=== PATIENT | female | born 1980 | race Caucasian/White ===

== ENCOUNTER 2018-03-20 20:20 | Emergency (ER) | payer OTHER ==
[2018-03-20 20:38] VITALS: BP 115/65
[2018-03-20] MEDS ORDERED: Penicillin G Benzathine 1.2MU* 1,200,000 UNITS/2 ML SYR IM ONE (20:46)
--- NOTE | 2018-03-20 20:48 | UC ---
Ear Complaint HPI - HPI Summary HPI Summary: Patient has had cold and congestion for the past 8 days. has developed body aches, tonight started having sharp pain in her right ear. - History of Current Complaint Chief Complaint: UCEar Stated Complaint: EAR COMPLAINT Hx Obtained From: Patient Hx Last Menstrual Period: 02/27/18 Onset/Duration: Sudden Onset, Lasting Hours Severity Initially: Moderate Severity Currently: Moderate Pain Intensity: 6 Associated Signs/Symptoms: Positive: URI Symptoms - Allergies/Home Medications Allergies/Adverse Reactions: Allergies Allergy/AdvReac Type Severity Reaction Status Date / Time MS Sulfa Antibiotics Allergy Intermediate Hives/Diff. Verified 12/17/12 12:58 [Sulfa Antibiotics] Breathing/I tching MS Levofloxacin Allergy Anxiety Verified 12/17/12 12:58 [From Levaquin] Home Medications: Home Medications Dapsone [Aczone] 90 gm TP DAILY 03/20/18 [History Confirmed 03/20/18] PMH/Surg Hx/FS Hx/Imm Hx Previously Healthy: Yes - Surgical History Surgical History: Yes Surgery Procedure, Year, and Place: URETHRAL STRETCHING - Family History Known Family History: Negative: Cardiac Disease, Hypertension - Social History Alcohol Use: Occasionally Substance Use Type: None Smoking Status (MU): Never Smoked Tobacco Review of Systems Constitutional: Negative Skin: Negative Eyes: Negative ENT: Sore Throat, Ear Ache, Nasal Discharge, Sinus Congestion Respiratory: Cough Cardiovascular: Negative Gastrointestinal: Negative Genitourinary: Negative Motor: Negative Neurovascular: Negative Musculoskeletal: Negative Neurological: Headache Psychological: Negative Is Patient Immunocompromised?: No All Other Systems Reviewed And Are Negative: Yes Physical Exam Triage Information Reviewed: Yes Appearance: Well-Appearing, Well-Nourished, Pain Distress Vital Signs: Initial Vital Signs Temp 99.2 F 03/20/18 20:33 Pulse 74 03/20/18 20:33 Resp 16 03/20/18 20:33 BP 115/65 03/20/18 20:33 Pulse Ox 100 03/20/18 20:33 Eye Exam: Normal ENT: Positive: Pharyngeal erythema, TM bulging - bilateral, TM dull, TM red - right Dental Exam: Normal Neck exam: Normal Neck: Positive: Supple, Nontender, No Lymphadenopathy Respiratory Exam: Normal Respiratory: Positive: Chest non-tender, Lungs clear, Normal breath sounds Cardiovascular Exam: Normal Cardiovascular: Positive: RRR, No Murmur, Pulses Normal Abdominal Exam: Normal Abdomen Description: Positive: Nontender, No Organomegaly, Soft Bowel Sounds: Positive: Present Musculoskeletal Exam: Normal Neurological Exam: Normal Psychological Exam: Normal Skin Exam: Normal Ear Complaint Course/Dx - Course Course Of Treatment: hx obtained, exam performed ,meds reviewed, treated for otitis media - Differential Dx/Diagnosis Differential Diagnosis/HQI/PQRI: Otitis Externa, Otitis Media, Perforated TM, URI Provider Diagnoses: right otitis media Discharge - Sign-Out/Discharge Documenting (check all that apply): Patient Departure All imaging exams completed and their final reports reviewed: No Studies - Discharge Plan Condition: Stable Disposition: HOME Referrals: David Espitia MD [Primary Care Provider] - Additional Instructions: 1. YOu were given a shot of penicillin for your ear infection. 2. Increase fluid intake and get plent of rest 3. Warm compresses to the affected ear for pain 4. Ibuprofen or tylenol for pain and fever. - Billing Disposition and Condition Condition: STABLE Disposition: Home
== END 2018-03-20 21:13 | disposition home or self-care (01) ==
LOC: UCCORT 20:20
DX: H66.91 Otitis media, unspecified, right ear (principal)
CPT/HCPCS: 96372; 99211; G0463; J0558

== ENCOUNTER 2018-04-02 10:02 | Emergency (ER) | payer OTHER ==
[2018-04-02 10:19] VITALS: BP 105/60
--- NOTE | 2018-04-02 12:12 | UC ---
Ear Complaint HPI - HPI Summary HPI Summary: Pt c/o lef ear pain, discharge, and swelling X1` day. Pt also c/o upper back and neck stiffness and pain. - History of Current Complaint Chief Complaint: UCEar Stated Complaint: LEFT EAR PAIN Time Seen by Provider: 04/02/18 10:30 Hx Last Menstrual Period: 02/27/18 ?: Yes Onset/Duration: Sudden Onset, Still Present Severity Initially: Mild Severity Currently: Moderate Pain Intensity: 6 Pain Scale Used: 0-10 Numeric Associated Signs/Symptoms: Positive: Discharge - Allergies/Home Medications Allergies/Adverse Reactions: Allergies Allergy/AdvReac Type Severity Reaction Status Date / Time levofloxacin Allergy Anxiety Verified 04/02/18 10:56 Sulfa (Sulfonamide Allergy Hives/Diff. Verified 04/02/18 10:56 Antibiotics) Breathing/I tching PMH/Surg Hx/FS Hx/Imm Hx Previously Healthy: Yes - Surgical History Surgical History: Yes Surgery Procedure, Year, and Place: URETHRAL STRETCHING - Family History Known Family History: Negative: Cardiac Disease, Hypertension - Social History Occupation: Employed Full-time Lives: With Family Alcohol Use: Occasionally Substance Use Type: None Smoking Status (MU): Never Smoked Tobacco Have You Smoked in the Last Year: No Review of Systems Constitutional: Negative Skin: Negative Eyes: Negative ENT: Dental Pain, Ear Ache Respiratory: Negative Cardiovascular: Negative Gastrointestinal: Negative Genitourinary: Negative Motor: Negative Neurovascular: Negative Musculoskeletal: Myalgia Neurological: Negative Psychological: Negative Is Patient Immunocompromised?: No All Other Systems Reviewed And Are Negative: Yes Physical Exam Triage Information Reviewed: Yes Appearance: Well-Appearing Vital Signs: Initial Vital Signs Temp 98.1 F 04/02/18 10:13 Pulse 73 04/02/18 10:13 Resp 14 04/02/18 10:13 BP 105/60 04/02/18 10:13 Pulse Ox 100 04/02/18 10:13 Vital Signs Reviewed: Yes Eye Exam: Normal ENT Exam: Other ENT: Positive: TM bulging - left TM with delvalle fluid behind left TM Dental Exam: Normal Neck exam: Normal Respiratory Exam: Normal Cardiovascular Exam: Normal Musculoskeletal Exam: Normal Neurological Exam: Normal Psychological Exam: Normal Skin Exam: Normal Ear Complaint Course/Dx - Differential Dx/Diagnosis Differential Diagnosis/HQI/PQRI: Mastoiditis, Otitis Externa, Otitis Media, URI Provider Diagnoses: left ear serous otitis. myalgia Discharge - Sign-Out/Discharge Documenting (check all that apply): Patient Departure All imaging exams completed and their final reports reviewed: No Studies - Discharge Plan Condition: Stable Disposition: HOME Prescriptions: Neomyc/Polym/HC 1% OTIC SUSP* [Cortisporin Otic Susp 1%*] 4 drop LEFT EAR Q8H 7 Days #1 btl Pseudoephedrine TAB* [Sudafed TAB*] 60 mg PO DAILY #7 tab Patient Education Materials: Serous Otitis Media (ED) Referrals: David Espitia MD [Primary Care Provider] - 5 Days - Billing Disposition and Condition Condition: STABLE Disposition: Home
== END 2018-04-02 10:54 | disposition home or self-care (01) ==
LOC: UCCORT 10:02
DX: H65.92 Unspecified nonsuppurative otitis media, left ear (principal); M79.10 Myalgia, unspecified site; Z88.1 Allergy status to other antibiotic agents
CPT/HCPCS: 99212; G0463

== ENCOUNTER 2019-08-12 11:28 | Emergency (ER) | payer BC ==
--- OUTSIDE RECORDS SUMMARY | 2019-08-12 11:38 | XMS REPORT | Continuity of Care Document ---
:1980 External Reference #:[id number] Author Name OLEKSANDR Carrillo-Chelye (transmitted by agent of provider Crys Cabrera) Address [address], [place] [address] Care Team Providers Name Role Phone David Espitia MD - Family Care Team Information Security And Compliance Analyst [phone] Medicine Problems Description No Information Available Social History Type Date Description Comments Sex Unknown ETOH Use Rarely consumes alcohol Tobacco Use Start: Unknown Patient has never smoked Smoking Status Reviewed: 08/10/19 Patient has never smoked Exercise Type/Frequency Exercises regularly Allergies, Adverse Reactions, Alerts Active Allergies Reaction Severity Comments Date Sulfa Antibiotics facial edema/hives 12/30/2017 Levaquin anxiety 12/30/2017 Medications Active Medications SIG Qnty Indications Ordering Provider Date Lexapro 1 by mouth every Unknown 10mg Tablets day Nasacort Allergy 24HR 2 spray both Unknown nares once daily 55mcg/Act Aerosol Zyrtec Allergy take one tablet Unknown 10mg by mouth in the Capsules evening Multi For Her once a day otc Unknown Capsules Cranberry Unknown 200mg Capsules Mucinex 1 by mouth twice Unknown 600mg Tablets ER a day prn 12HR Immunizations Description No Information Available Vital Signs Date Vital Result Comment 08/10/2019 12:22pm Height 64 inches 5'4" Weight 142.25 lb Heart Rate 65 /min BP Systolic 103 mmHg BP Diastolic 72 mmHg O2 % BldC Oximetry 100 % BMI (Body Mass Index) 24.4 kg/m2 Last Menstrual Period [id number] bleeding most of Feb 07/13/2019 3:32pm Height 64 inches 5'4" Weight 143.00 lb Heart Rate 62 /min BP Systolic 119 mmHg BP Diastolic 78 mmHg O2 % BldC Oximetry 100 % BMI (Body Mass Index) 24.5 kg/m2 Last Menstrual Period [id number] Results Test Acquired Date Facility Test Result H/L Range Note Cytology 07/13/2019 [facility] Cytology SEE RESULT BELOW [address] [place] [address] [phone] PDFReport SEE IMAGE 1 SEE RESULT BELOW Name: ASHLEY MATA : [address]: Woody Arana MD Acct: [id number] Unit: [id number] AGE: 39 Location: [facility] Re07/13/19 SEX: F Status: REG REF SPEC: [id number] ROBBY: 07/13/19-[address]: Woody Arana MD REQ: [id number] RECD: 07/13/19 STATUS: SOUT _ ORDERED: TP IMAGE ANALYS, HPV/Thin Prep, HPV 16/18 GENE COMMENTS: [id number] FINAL DIAGNOSIS Negative for Intraepithelial lesion or Malignancy HPV RESULTS Date Time Test Result Flag (u) Normal Range 07/13/19 1557 HPV KELI RFLX GE Negative Negative The high-risk HPV types detected by the assay include: 16, 18, 31, 33, 35, 39, 45, 51, 52, 56, 58, 59, 66, and 68. SPECIMEN(S) RECEIVED A. Ectocervical/Endocervical CYTOLOGY ADEQUACY Specimen Adequacy: Satisfactory of evaluation Transformation zone component identified CONTINUED ON NEXT PAGE DEPARTMENT OF PATHOLOGY, [facility] [employer] [place] [address] Latrell Keyes M.D. Director [facility] # [id number] CYTOLOGY PATIENT INFORMATION Patient Information: HPV: High risk HPV RNA testing regardless of pap results. HPV 16/18 Genotype Reflex Actual Specimen Date: 07/13/19 Last Menstrual Date: 07/13/19 ?: N Post Menopausal?: N Signed by and Reported on: ROBERTH Shrestha(ASCP) [id number] This Pap test was evaluated with the assistance of the ZayaPrep Test Imaging System. Due to cytologic findings at the training assistant microscope, comprehensive manual rescreening by a Stator Winder may be required. The Pap Smear is a screening test designed to aid in the detection of premalignant and malignant conditions of the uterine cervix. It is not a diagnostic procedure and should not be used as the sole means of detecting cervical cancer. Both false- positive and false- negative reports do occur. Depending on your risk status, a Pap smear should be obtained and evaluated every 1-3 years. END OF REPORT DEPARTMENT OF PATHOLOGY, [facility] [employer] [place], [place] [address] Latrell Keyes M.D. Director [facility] # [id number] Procedures Description No Information Available Medical Devices Description No Information Available Encounters Description No Information Available Assessments Date Code Description Provider 08/10/2019 N92.6 Irregular menstruation, unspecified Donny Carrilloe 07/13/2019 Z01.419 Encounter for gynecological examination Woody Arana MD (general) (routine) without abnormal findings 07/13/2019 Z11.51 Encounter for screening for human Woody Arana MD papillomavirus (HPV) Plan of Treatment 08/10/2019 - Donny CarrilloeN92.6 Irregular menstruation, unspecifiedRecommendations:Call [facility] for a consult Call if your bleeding is heavier - we would want you to come in fora consult Functional Status Description No Information Available Mental Status Description No Information Available Referrals Description No Information Available
--- OUTSIDE RECORDS SUMMARY | 2019-08-12 11:38 | XMS REPORT | Continuity of Care Document ---
:1980 External Reference #:[id number] Author Name ADAIR Arroyo (transmitted by agent of provider Ashish Valerio) Address [address] [place] [address] Care Team Providers Name Role Phone Karsten Gorman M.D. Care Team Information [employer] Se[employer] Manager [phone] David Espitia M.D. - Family Care Team Information [employer] Sequestration Plant Manager [phone] Medicine Problems Active Problems Provider Date Allergic rhinitis Julia Bedoya M.D. Onset: 06/19/2015 Allergic rhinitis due to animals Julia Bedoya M.D. Onset: 06/19/2015 Body Mass Index Between 19-24 Adult Kiran Sánchez M.D. Onset: 01/30/2015 Allergic asthma without status asthmaticus Kiran Sánchez M.D. Onset: Allergic rhinitis due to pollen Kiran Sánchez M.D. Onset: 01/30/2015 Chronic sinusitis Kiran Sánchez M.D. Onset: 01/30/2015 Social History Type Date Description Comments Sex Unknown ETOH Use Occasionally consumes alcohol Tobacco Use Start: Unknown Patient has never smoked Recreational Drug Use Denies Drug Use Allergies, Adverse Reactions, Alerts Active Allergies Reaction Severity Comments Date Levofloxacin anxiety 06/27/2012 Sulfa Antibiotics facial edema and hives 09/26/2012 Sulfa 08/20/2016 Medications Active Medications SIG Qnty Indications Ordering Date Provider Xopenex HFA 2 inhalations every 1units J30.1 Jaymie 12/26/2012 45mcg/Act 4 to 6 hours as Dontae, [employer] OFFICER-[facility] Aerosol needed, or 30 min prior to exercise. use with spacer sample given Lexapro 1 po qd Unknown 10mg Tablets Multivitamins 1 po qd Unknown Tablets Cranberry 4 tabs po bid Unknown 400mg Capsules Zyrtec Allergy 1 every day 90tabs Unknown 10mg Tablets Mucinex 2 by mouth every 12 Unknown 600mg Tablets hours ER 12HR Nasacort Allergy 24HR spray 2 spray into Unknown each nostril one to 55mcg/Act Aerosol two times daily Medications Administered in Office Medication SIG Qnty Indications Ordering Provider Date Injection Allergy Injection 06/15/2019 Injection Injection Allergy Injection 05/26/2019 Injection Injection Allergy Injection 04/07/2019 Injection Injection Allergy Injection 03/24/2019 Injection Injection Allergy Injection 03/03/2019 Injection Injection Allergy Injection 01/27/2019 Injection Injection Allergy Injection 01/06/2019 Injection Injection Allergy Injection 12/21/2018 Injection Injection Allergy Injection 12/09/2018 Injection Injection Allergy Injection 11/18/2018 Injection Injection Allergy Injection 11/02/2018 Injection Injection Allergy Injection 10/12/2018 Injection Injection Allergy Injection 09/21/2018 Injection Injection Allergy Injection 08/31/2018 Injection Injection Allergy Injection 08/17/2018 Injection Injection Allergy Injection 08/03/2018 Injection Injection Allergy Injection 07/20/2018 Injection Injection Allergy Injection 07/06/2018 Injection Injection Allergy Injection 06/15/2018 Injection Injection Allergy Injection 05/25/2018 Injection Injection Allergy Injection 05/04/2018 Injection Injection Allergy Injection 04/20/2018 Injection Injection Allergy Injection 03/30/2018 Injection Injection Allergy Injection 03/16/2018 Injection Injection Allergy Injection 03/02/2018 Injection Injection Allergy Injection 02/02/2018 Injection Injection Allergy Injection 01/17/2018 Injection Injection Allergy Injection 01/03/2018 Injection Injection Allergy Injection 12/17/2017 Injection Injection Allergy Injection 12/01/2017 Injection Injection Jareth Rivers M.D. 11/17/2017 Injection Injection Allergy Injection 11/17/2017 Injection Injection Allergy Injection 10/27/2017 Injection Injection Allergy Injection 10/13/2017 Injection Injection Allergy Injection 09/22/2017 Injection Injection Allergy Injection 09/08/2017 Injection Injection Jareth Rivers M.D. 08/18/2017 Injection Injection Allergy Injection 08/18/2017 Injection Injection Allergy Injection 07/28/2017 Injection Injection Allergy Injection 07/14/2017 Injection Injection Allergy Injection 06/18/2017 Injection Injection Allergy Injection 05/26/2017 Injection Injection Allergy Injection 05/12/2017 Injection Injection Allergy Injection 04/21/2017 Injection Injection Allergy Injection 04/07/2017 Injection Injection Allergy Injection 03/24/2017 Injection Injection Allergy Injection 03/10/2017 Injection Injection Allergy Injection 02/24/2017 Injection Injection Allergy Injection 02/10/2017 Injection Injection Jareth Rivers M.D. 01/28/2017 Injection Injection Allergy Injection 01/28/2017 Injection Injection Allergy Injection 01/12/2017 Injection Injection Allergy Injection 12/29/2016 Injection Injection Jareth Rivers M.D. 12/17/2016 Injection Injection Allergy Injection 12/17/2016 Injection Injection Allergy Injection 12/01/2016 Injection Injection Jareth Rivers M.D. 11/12/2016 Injection Injection Allergy Injection 11/12/2016 Injection Injection Jareth Rivers M.D. 10/29/2016 Injection Injection Allergy Injection 10/29/2016 Injection Injection Allergy Injection 10/15/2016 Injection Injection Allergy Injection 10/01/2016 Injection Injection Allergy Injection 09/17/2016 Injection Injection Allergy Injection 09/03/2016 Injection Injection Allergy Injection 08/18/2016 Injection Injection Allergy Injection 08/06/2016 Injection Injection Allergy Injection 07/14/2016 Injection Injection Allergy Injection 07/02/2016 Injection Injection Allergy Injection 06/16/2016 Injection Injection Allergy Injection 05/26/2016 Injection Injection Allergy Injection 05/12/2016 Injection Injection Allergy Injection 04/28/2016 Injection Injection Allergy Injection 04/14/2016 Injection Injection Allergy Injection 2016 Injection Injection Allergy Injection 03/17/2016 Injection Injection Allergy Injection 03/03/2016 Injection Injection Allergy Injection 02/18/2016 Injection Injection Allergy Injection 06/19/2015 Injection Injection Allergy Injection 01/30/2015 Injection Injection Kiran Sánchez M.D. 02/08/2012 Injection Injection Kiran Sánchez M.D. 02/05/2012 Injection Injection Kiran Sánchez M.D. 01/25/2012 Injection Injection Kiran Sánchez M.D. 01/22/2012 Injection Injection Kiran Sánchez M.D. 01/08/2012 Injection Injection Kiran Sánchez M.D. 12/28/2011 Injection Injection Kiran Princess, Carlo 12/21/2011 Injection Injection Kiran Princess, Carlo 12/07/2011 Injection Injection Kiran Princess, Carlo 11/30/2011 Injection Injection Kiran Rpincess, Carlo 11/13/2011 Injection Injection Kiran Princess, María Elena.Leanne 11/06/2011 Injection Injection Kiran Princess, Carlo 10/30/2011 Injection Injection Kiran Princess, Carlo 10/23/2011 Injection Injection Kiran Princess, Carlo 10/16/2011 Injection Injection Ashish Valerio M.D. 10/05/2011 Injection Injection Kiran Princess, Carlo 08/31/2011 Injection Injection Julia Bedoya M.D. 08/21/2011 Injection Injection Kiran Princess, Carlo 07/17/2011 Injection Injection Doris Hargrove, Carlo 07/01/2011 Injection Injection Kiran Princess, Carlo 06/24/2011 Injection Injection Kiran Princess, Carlo 06/17/2011 Injection Injection Kiran Princess, Carlo 06/01/2011 Injection Injection Kiran Princess, Carlo 05/25/2011 Injection Injection Kiran Princess, Carlo 05/22/2011 Injection Injection Kiran Princess, Carlo 04/03/2011 Injection Injection Kiran Princess, Carlo 03/27/2011 Injection Injection Kiran Princess, Carlo 03/16/2011 Injection Injection Kiran Princess, Carlo 03/02/2011 Injection Injection Kiran Princess, Carlo 02/09/2011 Injection Injection Kiran Princess, Carlo 02/04/2011 Injection Injection Kiran Princess, Carlo 01/21/2011 Injection Injection Kiran Princess, Carlo 01/12/2011 Injection Injection Kiran Princess, Carlo 01/07/2011 Injection Injection Kiran Princess, Carlo 12/29/2010 Injection Injection Kiran Princess, Carlo 12/24/2010 Injection Injection Kiran Princess, Carlo 12/17/2010 Injection Injection Kiran Princess, Carlo 12/10/2010 Injection Injection Kiran Princess, Carlo 12/03/2010 Injection Injection Kiran Princess, Carlo 11/19/2010 Injection Injection Kiran Princess, Carlo 11/12/2010 Injection Injection Kiran Princess, Carlo 11/03/2010 Injection Injection Kiran Princess, Carlo 10/31/2010 Injection Injection Kiran Princess, Carlo 10/20/2010 Injection Injection Kiran Princess, Carlo 10/08/2010 Injection Injection Kiran Princess, Carlo 09/24/2010 Injection Injection Dorian Womack M.D. 09/17/2010 Injection Injection Kiran Princess, Carlo 08/29/2010 Injection Injection Dorian Womack M.D. 08/22/2010 Injection Injection Dorian Womack M.D. 08/15/2010 Injection Injection Dorian Womack M.D. 08/01/2010 Injection Injection Dorian Womack M.D. 07/25/2010 Injection Injection Dorian Womack M.D. 07/09/2010 Injection Injection Dorian Womack M.D. 07/02/2010 Injection Injection Dorian Womack M.D. 06/25/2010 Injection Injection Dorian Womack M.D. 05/21/2010 Injection Injection Dorian Womack M.D. 05/14/2010 Injection Injection Dorian Womack M.D. 07/02/2005 Injection Injection Dorian Womack M.D. 06/09/2005 Injection Injection Dorian Womack M.D. 06/04/2005 Injection Injection Kiran Princess, Carlo 01/29/2005 Injection Injection Kiran Princess, Carlo 01/15/2005 Injection Injection Kiran Princess, Carlo 01/13/2005 Injection Injection Kiran Princess, Carlo 01/08/2005 Injection Injection Kiran PrincessCarlo byrne 01/06/2005 Injection Injection Kiran PrincessCarlo byrne 01/01/2005 Injection Injection Kiran PrincessCarlo byrne 12/30/2004 Injection Injection Kiran PrincessCarlo byrne 12/25/2004 Injection Injection Kiran PrincessCarlo byrne 12/23/2004 Injection Injection Kiran Carlo Sánchez 12/18/2004 Injection Injection Kiran PrincessCarlo byrne 12/11/2004 Injection Injection Kiran PrincessCarlo byrne 12/04/2004 Injection Injection Jamia Warnerlton 12/02/2004 Injection Injection Kiran PrincessCarlo byrne 11/27/2004 Injection Injection Kiran Carlo Sánchez 11/20/2004 Injection Injection Kiran Carlo Sánchez 11/06/2004 Injection Injection Kiran Carlo Sánchez 11/04/2004 Injection Injection Kiran Carlo Sánchez 01/31/2004 Injection Injection Kiran Carlo Sánchez 01/22/2004 Injection Injection Kiran PrincessCarlo byrne 01/15/2004 Injection Injection Kiran Carlo Sánchez 01/10/2004 Injection Injection Kiran Carlo Sánchez 01/01/2004 Injection Injection Kiran Carlo Sánchez 12/13/2003 Injection Injection Kiran Carlo Sánchez 12/06/2003 Injection Injection Kiran Sánchez M.D. 11/20/2003 Injection Injection Kiran Sánchez M.D. 01/23/2003 Injection Injection Kiran Sánchez M.D. 01/09/2003 Injection Immunizations CPT Code Status Date Vaccine Lot # 40148 Given 03/14/2013 Influenza Vaccine 59423 Given Unknown Influenza Virus Vaccine, Quadrivalent, Split, Preservative Free 63552 Given Unknown Influenza Vaccine 93590 Given Unknown Influenza Vaccine 23325 Given Unknown Influenza Vaccine Vital Signs Date Vital Result Comment 06/22/2019 4:23pm Height 62.5 inches 5'2.50" Weight 145.00 lb Weight 65.772 kg Respiratory Rate 18 /min Heart Rate 85 /min O2 % BldC Oximetry 99 % BP Systolic 125 mmHg BP Diastolic 75 mmHg Asthma Control Test 25 BMI (Body Mass Index) 26.1 kg/m2 06/15/2018 2:50pm Height 62.5 inches 5'2.50" Weight 143.00 lb Weight 64.865 kg Respiratory Rate 20 /min Heart Rate 62 /min O2 % BldC Oximetry 99 % BP Systolic 107 mmHg BP Diastolic 69 mmHg Asthma Control Test 24 BMI (Body Mass Index) 25.7 kg/m2 Results Description No Information Available Procedures Date Code Description Status 06/22/2019 25309 Pre PFT Completed 06/15/2019 91236 Extract 1-10 Completed 06/15/2019 76387 Injection Completed 05/26/2019 42289 Injection Completed 04/07/2019 44044 Injection Completed 03/24/2019 55203 Injection Completed 03/03/2019 17327 Injection Completed 01/27/2019 21767 Injection Completed 01/06/2019 41283 Injection Completed Medical Devices Description No Information Available Encounters Type Date Location Provider Dx Diagnosis Office Visit 06/22/2019 [facility] Brianne Manriquez J30.1 Allergic rhinitis 4:20p [employer] OFFICER-[facility] due to pollen J30.81 Allergic rhinitis due to animal (cat) (dog) hair and dander J45.20 Mild intermittent asthma, uncomplicated Assessments Date Code Description Provider 06/22/2019 J30.1 Allergic rhinitis due to pollen ADAIR Arroyo 06/22/2019 J30.81 Allergic rhinitis due to animal (cat) ADAIR Arroyo (dog) hair and dander 06/22/2019 J45.20 Mild intermittent asthma, uncomplicated OLEKSANDR Arroyo 06/15/2019 J30.1 Allergic rhinitis due to pollen Jareth Rivers M.D. 06/15/2019 J30.1 Allergic rhinitis due to pollen Allergy Injection 06/15/2019 J30.2 Other seasonal allergic rhinitis Jareth Rivers M.D. 06/15/2019 J30.2 Other seasonal allergic rhinitis Allergy Injection 06/15/2019 J30.81 Allergic rhinitis due to animal (cat) Jareth Rivers M.D. (dog) hair and dander 06/15/2019 J30.81 Allergic rhinitis due to animal (cat) Allergy Injection (dog) hair and dander 05/26/2019 J30.1 Allergic rhinitis due to pollen Jareth Rivers M.D. 05/26/2019 J30.1 Allergic rhinitis due to pollen Allergy Injection 05/26/2019 J30.2 Other seasonal allergic rhinitis Jareth Rivers M.D. 05/26/2019 J30.2 Other seasonal allergic rhinitis Allergy Injection 05/26/2019 J30.81 Allergic rhinitis due to animal (cat) Jareth Rivers M.D. (dog) hair and dander 05/26/2019 J30.81 Allergic rhinitis due to animal (cat) Allergy Injection (dog) hair and dander 04/07/2019 J30.1 Allergic rhinitis due to pollen Jareth Rivers M.D. 04/07/2019 J30.1 Allergic rhinitis due to pollen Allergy Injection 04/07/2019 J30.2 Other seasonal allergic rhinitis Jareth Rivers M.D. 04/07/2019 J30.2 Other seasonal allergic rhinitis Allergy Injection 04/07/2019 J30.81 Allergic rhinitis due to animal (cat) Jareth Rivers M.D. (dog) hair and dander 04/07/2019 J30.81 Allergic rhinitis due to animal (cat) Allergy Injection (dog) hair and dander 03/24/2019 J30.1 Allergic rhinitis due to pollen Jareth Rivers M.D. 03/24/2019 J30.1 Allergic rhinitis due to pollen Allergy Injection 03/24/2019 J30.2 Other seasonal allergic rhinitis Jareth Rivers M.D. 03/24/2019 J30.2 Other seasonal allergic rhinitis Allergy Injection 03/24/2019 J30.81 Allergic rhinitis due to animal (cat) Jareth Rivers M.D. (dog) hair and dander 03/24/2019 J30.81 Allergic rhinitis due to animal (cat) Allergy Injection (dog) hair and dander 03/03/2019 J30.1 Allergic rhinitis due to pollen Jareth Rivers M.D. 03/03/2019 J30.1 Allergic rhinitis due to pollen Allergy Injection 03/03/2019 J30.2 Other seasonal allergic rhinitis Jareth Rivers M.D. 03/03/2019 J30.2 Other seasonal allergic rhinitis Allergy Injection 03/03/2019 J30.81 Allergic rhinitis due to animal (cat) Jareth Rivers M.D. (dog) hair and dander 03/03/2019 J30.81 Allergic rhinitis due to animal (cat) Allergy Injection (dog) hair and dander 01/27/2019 J30.1 Allergic rhinitis due to pollen Jareth Rivers M.D. 01/27/2019 J30.1 Allergic rhinitis due to pollen Allergy Injection 01/27/2019 J30.2 Other seasonal allergic rhinitis Jareth Rivers M.D. 01/27/2019 J30.2 Other seasonal allergic rhinitis Allergy Injection 01/27/2019 J30.81 Allergic rhinitis due to animal (cat) Jareth Rivers M.D. (dog) hair and dander 01/27/2019 J30.81 Allergic rhinitis due to animal (cat) Allergy Injection (dog) hair and dander 01/06/2019 J30.1 Allergic rhinitis due to pollen Jareth Rivers M.D. 01/06/2019 J30.1 Allergic rhinitis due to pollen Allergy Injection 01/06/2019 J30.2 Other seasonal allergic rhinitis Jareth Rivers M.D. 01/06/2019 J30.2 Other seasonal allergic rhinitis Allergy Injection 01/06/2019 J30.81 Allergic rhinitis due to animal (cat) Jareth Rivers M.D. (dog) hair and dander 01/06/2019 J30.81 Allergic rhinitis due to animal (cat) Allergy Injection (dog) hair and dander Plan of Treatment Future Appointment(s):06/27/2020 4:20 pm - ADAIR Arroyo at [facility] Functional Status Description No Information Available Mental Status Description No Information Available Referrals Description No Information Available
--- OUTSIDE RECORDS SUMMARY | 2019-08-12 11:38 | XMS REPORT | Continuity of Care Document ---
:1980 External Reference #:[id number] Author Name Woody Arana MD (transmitted by agent of provider Faviola Broussard) Address [address] [place] [address] Care Team Providers Name Role Phone David Espitia MD - Family Care Team Information [employer] Medicine Problems Description No Information Available Social History Type Date Description Comments Sex Unknown ETOH Use Rarely consumes alcohol Tobacco Use Start: Unknown Patient has never smoked Smoking Status Reviewed: 07/13/19 Patient has never smoked Exercise Type/Frequency Exercises [...] otc Unknown Capsules Cranberry Unknown 200mg Capsules Immunizations Description No Information Available Vital Signs Date Vital Result Comment 07/13/2019 3:32pm Height 64 inches 5'4" Weight 143.00 lb Heart Rate 62 /min BP Systolic 119 mmHg BP Diastolic 78 mmHg O2 % BldC Oximetry 100 % BMI (Body Mass Index) 24.5 kg/m2 Last Menstrual Period 1834465 12/30/2017 3:35pm Height 64 inches 5'4" Weight 135.00 lb Heart Rate 81 /min BP Systolic 120 mmHg BP Diastolic 84 mmHg O2 % BldC Oximetry 97 % BMI (Body Mass Index) 23.2 kg/m2 Last Menstrual Period [id number] Results Test Acquired Date Facility Test Result H/L Range Note Laboratory test 07/13/2019 [facility] Cytology <pending> finding [address] [place] [address] [phone] Procedures Description No Information Available Medical Devices Description No Information Available Encounters Description No Information Available Assessments Date Code Description Provider 07/13/2019 Z01.419 Encounter for gynecological examination Woody Arana MD (general) (routine) without abnormal findings Plan of Treatment 07/13/2019 - Woody Arana MDZ01.419 Encounter for gynecological examination ( general) (routine) without abnormal findingsComments:Plan Screening mammogram next yearFollow up:One year Functional Status Description No Information Available Mental Status Description No Information Available Referrals Description No Information Available
[2019-08-12 12:04] VITALS: BP 100/63
--- NOTE | 2019-08-12 13:00 | UC ---
Respiratory Complaint HPI - HPI Summary HPI Summary: Sore throat x2 days. Now "moving down into chest"- c/o cough and congestion. Unsure of fever but felt chills. Taking mucinex, zyrtec and nasocort nasal spray prn. - History of Current Complaint Chief Complaint: UCRespiratory Stated Complaint: CHEST CONGESTION Time Seen by Provider: 08/12/19 12:04 Hx Obtained From: Patient Hx Last Menstrual Period: 08/06/19-08/10/19 Pain Intensity: 5 - Allergies/Home Medications Allergies/Adverse Reactions: Allergies Allergy/AdvReac Type Severity Reaction Status Date / Time levofloxacin Allergy Anxiety Verified 08/12/19 11:55 Sulfa (Sulfonamide Allergy Hives/Diff. Verified 08/12/19 11:55 Antibiotics) Breathing/I tching Home Medications: Home Medications Cetirizine* [ZyrTEC 10 MG TAB*] 10 mg PO BEDTIME 11/13/12 [History Confirmed ] Dapsone [Aczone] 90 gm TP DAILY PRN 03/20/18 [History Confirmed 08/12/19] Benzonatate CAP* [Tessalon 100 MG CAP*] 100 mg PO BID 5 Days #10 cap 08/12/19 [ Rx] Escitalopram * [Lexapro *] 10 mg PO DAILY 08/12/19 [History Confirmed 08/12/19] Levalbuterol HFA INHALER* [Xopenex Hfa Inhaler*] 2 puff BID PRN 08/12/19 [ History Confirmed 08/12/19] Triamcinolone NASAL SPRAY* [Nasacort Aq Nasal [place]*] 2 spray BID 08/12/19 [ History Confirmed 08/12/19] PMH/Surg Hx/FS Hx/Imm Hx - Additional Past Medical History Additional PMH: no chronic illness Previously Healthy: Yes - Surgical History Surgical History: Yes Surgery Procedure, Year, and Place: URETHRAL STRETCHING - Family History Known Family History: Negative: Cardiac Disease, Hypertension - Social History Alcohol Use: None Substance Use Type: None Smoking Status (MU): Never Smoked Tobacco Have You Smoked in the Last Year: No Review of Systems All Other Systems Reviewed And Are Negative: Yes Constitutional: Negative: Fever Skin: Negative: Rash Eyes: Negative: Drainage ENT: Positive: Sore Throat, Sinus Congestion. Negative: Nasal Discharge, Sinus Pain/Tenderness Respiratory: Positive: Cough Neurological/Mental Status: Negative: Headache Physical Exam Triage Information Reviewed: Yes Appearance: Well-Appearing Vital Signs: Initial Vital Signs Temp 98.2 F 08/12/19 11:57 Pulse 78 08/12/19 11:57 Resp 16 08/12/19 11:57 BP 100/63 08/12/19 11:57 Pulse Ox 100 08/12/19 11:57 Vital Signs Reviewed: Yes Eyes: Positive: Conjunctiva Clear ENT: Positive: Pharynx normal, TMs normal, Uvula midline Neck: Positive: Supple, Nontender, No Lymphadenopathy Respiratory Exam: Normal Cardiovascular Exam: Normal Musculoskeletal: Positive: Other: - R arm is supple, tender post op, moderate swelling at R elbow. no isoalted swollen areas in upper arm or redness. Neurological: Positive: Alert Skin: Positive: Other - fingers are not swollen or red. Skin has no open areas or irritated areas. Respiratory Course/Dx - Course Course Of Treatment: Bronchitis , viral pharyngitis, exam essentially unremarkable. discussed ways to manage. vitals wnl. self limiting. advised her to use her xopenex Q6hrs prn. - Differential Dx/Diagnosis Differential Diagnosis/HQI/PQRI: Bronchitis, Lower Resp Infection, Other Provider Diagnosis: Bronchitis Discharge ED - Sign-Out/Discharge Documenting (check all that apply): Patient Departure All imaging exams completed and their final reports reviewed: No Studies - Discharge Plan Condition: Good Disposition: HOME Prescriptions: Benzonatate CAP* [Tessalon 100 MG CAP*] 100 mg PO BID 5 Days #10 cap Patient Education Materials: Upper Respiratory Infection (ED) Forms: *Work Release Referrals: David Espitia MD [Primary Care Provider] - Additional Instructions: If a fever develops please return - Billing Disposition and Condition Condition: GOOD Disposition: Home
== END 2019-08-12 13:13 | disposition home or self-care (01) ==
LOC: UCCORT 11:28
DX: J40 Bronchitis, not specified as acute or chronic (principal); J02.9 Acute pharyngitis, unspecified; R09.81 Nasal congestion; Z88.1 Allergy status to other antibiotic agents; Z88.2 Allergy status to sulfonamides
CPT/HCPCS: 99212; G0463